=== PATIENT | female | born 1970 | race Caucasian/White ===

== ENCOUNTER 2020-01-14 08:34 | Emergency (ER) | payer OTHER ==
--- NOTE | 2020-01-14 08:49 | ERPHSYRPT ---
- History of Present Illness Time Seen by Provider: 01/14/20 08:43 Historian: patient Exam Limitations: no limitations Physician History: 49 yo wf w L flank pain x1hr. Pain is 7/10 on scale/stabbing/nothing makes better or worse. Pt states similar pain to kidney stones in past. She has had N/V wo fever/dysuria/hematuria/diarrhea. Timing/Duration: today (1hr) Activities at Onset: rest Quality: stabbing Abdominal Pain Onset Location: flank Pain Radiation: no radiation Severity of Pain-Max: severe Severity of Pain-Current: severe Modifying Factors: Improves With: nothing Associated Symptoms: nausea, vomiting, No diarrhea Previous symptoms: same symptoms as today (w kidney stones) Allergies/Adverse Reactions: No Known Drug Allergies Allergy (Verified 01/14/20 08:50) Travel Risk - International Travel Have you traveled outside of the country in past 3 weeks: No - Coronavirus Screening Are you exhibiting any of the following symptoms?: No Close contact with a COVID-19 positive Pt in past 14-21 Days: No - Review of Systems Constitutional: No Symptoms Eyes: No Symptoms Ears, Nose, & Throat: No Symptoms Respiratory: No Symptoms Cardiac: No Symptoms Genitourinary Symptoms: No Dysuria, No Frequency, No Hematuria, No Hesitancy Musculoskeletal: No Symptoms Skin: No Symptoms Neurological: No Symptoms Psychological: No Symptoms Endocrine: No Symptoms Hematologic/Lymphatic: No Symptoms Immunological/Allergic: No Symptoms All Other Systems: Reviewed and Negative - Past Medical History Neurological History: No Pertinent History ENT History: No Pertinent History Cardiac History: No Pertinent History Respiratory History: No Pertinent History Endocrine Medical History: No Pertinent History Musculoskeletal History: No Pertinent History History: Other (kidney stones) Psycho-Social History: No Pertinent History Female Reproductive Disorders: No Pertinent History - Past Surgical History Female Surgical History: Hysterectomy, Other (uterine fibroid) - Social History Smoking Status: Light tobacco smoker (<1ppd) Alcohol Use: None Drug Use: none Significant Family History: no pertinent family hx - Nursing Vital Signs Nursing Vital Signs: Initial Vital Signs Temperature 98.2 F 01/14/20 08:44 Pulse Rate 54 L 01/14/20 08:44 Respiratory Rate 22 01/14/20 08:44 Blood Pressure 109/66 01/14/20 08:44 O2 Sat by Pulse Oximetry 100 01/14/20 08:44 Pain Scale Pain Intensity 2 - Physical Exam General Appearance: no apparent distress Eye Exam: PERRL/EOMI, eyes nml inspection Ears, Nose, Throat Exam: normal ENT inspection, TMs normal, pharynx normal, moist mucous membranes Neck Exam: normal inspection, non-tender, supple, full range of motion, No meningismus, No Brudzinski, No Kernig's Respiratory Exam: normal breath sounds, lungs clear, airway intact, No respiratory distress Cardiovascular Exam: regular rate/rhythm, normal heart sounds, normal peripheral pulses, No murmur Gastrointestinal/Abdomen Exam: soft, normal bowel sounds, No tenderness, No distention, No hepatomegaly Pelvic Exam: not done Back Exam: normal range of motion, No CVA tenderness Extremity Exam: normal inspection, normal range of motion Neurologic Exam: alert, oriented x 3, cooperative, striker out II-XII nml as tested, normal mood/affect, nml cerebellar function, nml station & gait, sensation nml, No motor deficits, No sensory deficit Skin Exam: normal color, warm, dry, No rash Lymphatic Exam: No adenopathy SpO2 Interpretation: normal O2 Delivery: Room Air - Course Nursing assessment & vital signs reviewed: Yes - CT Exams Abdomen/Pelvis CT Interpretation: Discussed w/radiologist (4.3x2.5 L distal ureteral stone w mild hydro) Ordered Tests: Active Orders 24 hr Category Date Time Status ABDOMEN AND PELVIS W/0 CONTRAS [CT] Stat Exams 01/14/20 09:04 Completed UA W/RFX UR CULTURE Stat Lab 01/14/20 11:45 Completed Medication Summary Discontinued Medications Generic Name Dose Route Start Last Admin Trade Name Ashlyn PRN Reason Stop Dose Admin Fentanyl Citrate 100 mcg 01/14/20 10:16 01/14/20 10:23 Sublimaze 100 Mcg/2 Ml IV 01/14/20 10:17 100 mcg STAT ONE Administration Fentanyl Citrate Confirm 01/14/20 10:23 Sublimaze 100 Mcg/2 Ml Administered 01/14/20 10:24 Dose 100 mcg .ROUTE .STK-MED ONE Sodium Chloride 1,000 mls @ 999 mls/hr 01/14/20 08:57 01/14/20 10:48 Sodium Chloride 0.9% 1000 Ml IV 01/14/20 09:57 Infused .Q1H1M STA Infusion Sodium Chloride Confirm 01/14/20 08:59 Sodium Chloride 0.9% 1000 Ml Administered 01/14/20 09:00 Dose 1,000 mls @ ud .ROUTE .STK-MED ONE Sodium Chloride 1,000 mls @ 999 mls/hr 01/14/20 10:40 01/14/20 11:55 Sodium Chloride 0.9% 1000 Ml IV 01/14/20 11:40 Infused .Q1H1M STA Infusion Sodium Chloride Confirm 01/14/20 10:51 Sodium Chloride 0.9% 1000 Ml Administered 01/14/20 10:52 Dose 1,000 mls @ ud .ROUTE .STK-MED ONE Ketorolac Tromethamine 30 mg 01/14/20 08:56 01/14/20 09:09 Toradol 30 Mg Injection IV 01/14/20 08:57 30 mg STAT ONE Administration Ketorolac Tromethamine Confirm 01/14/20 08:59 Toradol 30 Mg Injection Administered 01/14/20 09:00 Dose 30 mg .ROUTE .STK-MED ONE Ondansetron HCl 4 mg 01/14/20 08:56 01/14/20 09:09 Zofran 4 Mg/2 Ml Vial IV 01/14/20 08:57 4 mg STAT ONE Administration Ondansetron HCl Confirm 01/14/20 08:59 Zofran 4 Mg/2 Ml Vial Administered 01/14/20 09:00 Dose 4 mg .ROUTE .STK-MED ONE Ondansetron HCl 4 mg 01/14/20 09:47 01/14/20 09:50 Zofran 4 Mg/2 Ml Vial IV 01/14/20 09:48 4 mg STAT ONE Administration Ondansetron HCl Confirm 01/14/20 09:50 Zofran 4 Mg/2 Ml Vial Administered 01/14/20 09:51 Dose 4 mg .ROUTE .STK-MED ONE Promethazine HCl 25 mg 01/14/20 11:44 01/14/20 11:47 Phenergan 25 Mg Inj IM 01/14/20 11:45 25 mg STAT ONE Administration Promethazine HCl Confirm 01/14/20 11:46 Phenergan 25 Mg Inj Administered 01/14/20 11:47 Dose 25 mg .ROUTE .STK-MED ONE Lab/Rad Data: Laboratory Results 01/14/20 Range/Units 11:45 Urine Color YELLOW (YELLOW) Urine Appearance CLOUDY (CLEAR) Urine pH 5.0 (5-6) Ur Specific [place] 1.023 (1.005-1.025) Urine Protein NEGATIVE (Negative) Urine Ketones NEGATIVE (NEGATIVE) Urine Blood MODERATE (0-5) Frank/ul Urine Nitrite NEGATIVE (NEGATIVE) Urine Bilirubin NEGATIVE (NEGATIVE) Urine Urobilinogen NEGATIVE (0-1) mg/dL Ur Leukocyte Esterase NEGATIVE (NEGATIVE) Urine WBC (Auto) 3-5 (0-5) /HPF Urine RBC (Auto) 16-25 (0-2) /HPF U Epithel Cells (Auto) FEW (FEW) /HPF Urine Bacteria (Auto) RARE (NEGATIVE) /HPF Urine Mucus (Auto) MODERATE (NEGATIVE) /HPF Urine Culture Reflexed NO (NO) Urine Glucose NEGATIVE (NEGATIVE) mg/dL - Progress Progress: improved Progress Note: 01/14/20 12:20 Pt given 30mg IV toradol w minimal relief of pain, so subsequent 100mcg IV Fentanyl given which provided adequate relief. Pt hydrated w 2L NS bolus. Nausea/vomiting treated w 4mg IV zofran x2/25mg IV phenergan w improvement. Counseled pt/family regarding: lab results, diagnosis, rad results - Departure Departure Disposition: Home Clinical Impression: Ureterolithiasis Condition: Stable Critical Care Time: No Referrals: ANGELIC BOYD NP [Primary Care Provider] - Instructions: Kidney Stones (DC) Additional Instructions: Strain all urine. Pain meds as needed. Follow up with family MD in 1-2 days Return to ER for increasing pain or temperature greater than 100.5 Forms: Work/School Release Form Prescriptions: Hydrocodone/APAP 5-325 Tab^^^ [[place] 5-325 Tablet^^^] 1 tab PO Q6HPRN PRN #6 tablet MDD 6 PRN Reason: Pain
[2020-01-14] MEDS ORDERED: Zofran 4 MG/2 ML VIAL IV ONE ×2 (08:56→09:47)
[2020-01-14] MEDS ORDERED: TORAdol 30 mg Injection IV ONE (08:56)
[2020-01-14] MEDS ORDERED: Sodium Chloride 0.9% 1000 ML 1,000 ML IV STA ×2 (08:57→10:40)
[2020-01-14] MEDS ORDERED: TORAdol 30 mg Injection ONE (08:59)
[2020-01-14] MEDS ORDERED: Zofran 4 MG/2 ML VIAL ONE ×2 (08:59→09:50)
[2020-01-14] MEDS ORDERED: Sodium Chloride 0.9% 1000 ML 1,000 ML ONE ×2 (08:59→10:51)
[2020-01-14] MEDS ORDERED: SUBLIMAZE 100 MCG/2 ML IV ONE (10:16)
[2020-01-14] MEDS ORDERED: SUBLIMAZE 100 MCG/2 ML ONE (10:23)
--- NOTE | 2020-01-14 10:24 | XRAY ---
Exam: CT of the abdomen and pelvis without IV contrast from 01/14/2020. CTDI: 16.61 mGy Comparison: None. Indication: 49-year-old female with left-sided flank pain and left lower quadrant pain. The patient gives a history of prior hysterectomy. Technique: Non-IV contrast axial images were obtained through the abdomen and pelvis. Reconstructed coronal and sagittal images were created and reviewed. Findings: The visualized lung bases reveal minimal posterior dependent atelectasis, right greater than left. A thin curvilinear strand of plate atelectasis is seen at the mid medial left lung base. No pleural fluid is seen. The transverse heart size appears within normal limits. There is a suggestion of a minimal hiatal hernia on axial image #19. Assessment of solid organs is limited without the use of IV contrast. The liver appears of unremarkable size and uniform attenuation. No intrahepatic biliary duct distention is seen. There are at least 2 prominent calcium ringed densities in the gallbladder neck, each measuring about 1.9 cm in diameter. This is consistent with cholelithiasis. No definite distention of the common bile duct is seen. The spleen is of normal size and reveals no mass. No abnormality of the pancreas or adrenal glands is seen. The kidneys appear of unremarkable size and shape. There is a 1.6 cm in diameter round low-attenuation density within the anterior aspect of the upper to mid aspect of the right kidney measuring +15.3 Hounsfield units. This might represent a renal cyst. This is incompletely evaluated. I also note multiple bilateral nonobstructing renal calculi, more numerous on the right than left. However, there is some asymmetric distention of the left ureter down to the level of an obstructing 2.5 mm distal left ureteral calculus located just proximal to the left ureterovesical junction. See axial image #116. This measures about 4.3 mm in greatest length on sagittal image #118. No other ureteral calculi are seen. The urinary bladder reveals only minimal urine within it. No definite urinary bladder calculi are seen. The abdominal aorta appears of normal diameter. No abdominal aortic aneurysm or abnormal retroperitoneal lymphadenopathy is seen. Abundant intraperitoneal fat is seen. No free intraperitoneal air is seen. A small fat-containing umbilical hernia is seen on midline sagittal image #96. No bowel containing ventral hernia is seen. The appendix is identified within the right lower quadrant and appears unremarkable. The bowel appears unobstructed. Some scattered colonic stool is noted. Small calcified phleboliths are seen within the lower pelvis. The uterus is surgically absent. No enlarged pelvic lymph nodes or free intraperitoneal fluid is seen. The skeleton reveals no acute fracture or aggressive bone lesion. Impression: 1. I note multiple small nonobstructing bilateral renal calculi. However, there is both asymmetric mild left hydroureter, as well as a 4.3 mm x 2.5 mm obstructing stone within the distal left ureter just proximal to the left ureterovesical junction causing mild obstructive uropathy on the left. 2. Cholelithiasis. 3. Normal-appearing appendix. 4. Minimal hiatal hernia, small fat-containing umbilical hernia, and evidence of prior hysterectomy. 5. Incidentally, I see no evidence of significant diverticulosis or diverticulitis within the left lower quadrant. 6. Probable small round renal cortical cyst within the anterior aspect of the upper to mid portion of the right kidney. This is incompletely evaluated on a non-IV contrast study.
[2020-01-14] MEDS ORDERED: Phenergan 25 MG INJ IM ONE (11:44)
[2020-01-14] MEDS ORDERED: Phenergan 25 MG INJ ONE (11:46)
[2020-01-14 12:04] LABS: Appearance CLOUDY (CLEAR); Bacteria RARE /HPF (NEGATIVE); Bilirubin NEGATIVE (NEGATIVE); Blood MODERATE Ery/ul (0-5); Epithelial Cells FEW /HPF (FEW); Glucose NEGATIVE (NEGATIVE); Ketones NEGATIVE (NEGATIVE); Leukocyte Esterase NEGATIVE (NEGATIVE); Mucus MODERATE /HPF (NEGATIVE); Nitrite NEGATIVE (NEGATIVE); Protein,Urine Dip NEGATIVE (Negative); Specific Gravity 1.023 (1.005-1.025); Urobilinogen NEGATIVE mg/dL (0-1)
[2020-01-14 13:11] VITALS: BP 127/84; PULSE 58; O2SAT 97
== END 2020-01-14 13:15 | disposition home or self-care (01) ==
LOC: ED 08:34
DX: N20.1 Calculus of ureter (principal)
CPT/HCPCS: 74176; 81001; 96360; 96361; 96372; 96374; 96375; 96376; 99285; J1885; J2405; J2550; J3010

== ENCOUNTER 2022-02-18 19:28 | Emergency (ER) | payer OTHER ==
[2022-02-18 19:41] VITALS: PULSE 84
[2022-02-18] MEDS ORDERED: Zofran 4 MG/2 ML VIAL IV ONE (19:44)
[2022-02-18] MEDS ORDERED: BABY ASPIRIN 81 MG CHEW PO ONE (19:44)
[2022-02-18] MEDS ORDERED: MORPHINE SULFATE 4 MG INJ IV ONE (19:44)
--- NOTE | 2022-02-18 19:45 | ERPHSYRPT ---
- History of Present Illness Time Seen by Provider: 02/18/22 19:39 Historian: patient Exam Limitations: no limitations Physician History: This is an obese 51-year-old white female smoker who presents with intermittent chest pain that is substernal central sharp and radiates into her back. She is a smoker but has not smoked in the last week. She has chest pain that worsens with a cough and with deep breath. Patient has been seen in [facility] facility and given naproxen which has not helped with the chest pain. Patient has no diagnosed cardiac diseases. She has no abdominal pain. She has no nausea vomiting or diarrhea. She has no fevers. Timing/Duration: intermittent, worse, other (Intermittently for a month) Quality: sharpness, stabbing Location: substernal, central Chest Pain Radiation: back Severity of Pain-Max: moderate Severity of Pain-Current: moderate Associated Symptoms: hurts to breathe (Hurts to take a deep breath), back pain Prior Chest Pain/Cardiac Workup: no prior chest pain Nitro Today/Relief: no nitro taken today Aspirin Treatment Today: no aspirin today Allergies/Adverse Reactions: morphine Allergy (Verified 02/18/22 20:18) Hx Tetanus, Diphtheria Vaccination/Date Given: No Hx Influenza Vaccination/Date Given: Yes Hx Pneumococcal Vaccination/Date Given: No Travel Risk - International Travel Have you traveled outside of the country in past 3 weeks: No - Coronavirus Screening Are you exhibiting any of the following symptoms?: No Close contact with a COVID-19 positive Pt in past 14-21 Days: No - Review of Systems Constitutional: No Symptoms Eyes: No Symptoms Ears, Nose, & Throat: No Symptoms Respiratory: No Symptoms Cardiac: Chest Pain Abdominal/Gastrointestinal: No Symptoms Genitourinary Symptoms: No Symptoms Musculoskeletal: No Symptoms Skin: No Symptoms Neurological: No Symptoms Psychological: No Symptoms Endocrine: No Symptoms Hematologic/Lymphatic: No Symptoms Immunological/Allergic: No Symptoms All Other Systems: Reviewed and Negative - Past Medical History Pertinent Past Medical History: No Neurological History: No Pertinent History ENT History: No Pertinent History Cardiac History: No Pertinent History Respiratory History: No Pertinent History Endocrine Medical History: No Pertinent History Musculoskeletal History: No Pertinent History History: Other (kidney stones) Psycho-Social History: No Pertinent History Female Reproductive Disorders: No Pertinent History - Past Surgical History Past Surgical History: Yes Female Surgical History: Hysterectomy, Other (uterine fibroid) Other Surgical History: c section. hysterctomy. fibroids - Social History Smoking Status: Light tobacco smoker (<1ppd) How long have you smoked: years Exposure to second hand smoke: Yes Alcohol Use: None Drug Use: none Patient Lives Alone: No Significant Family History: no pertinent family hx - Nursing Vital Signs Nursing Vital Signs: Initial Vital Signs Temperature 97.9 F 02/18/22 19:29 Pulse Rate 84 02/18/22 19:29 Respiratory Rate 18 02/18/22 19:29 Blood Pressure 136/95 02/18/22 19:29 O2 Sat by Pulse Oximetry 99 02/18/22 19:29 Pain Scale Pain Intensity 5 - Physical Exam General Appearance: mild distress, alert, anxiety, obese Eye Exam: PERRL/EOMI, eyes nml inspection Ears, Nose, Throat Exam: normal ENT inspection, moist mucous membranes Neck Exam: normal inspection, non-tender, supple, full range of motion Respiratory Exam: normal breath sounds, chest tenderness, lungs clear, airway intact, No respiratory distress Cardiovascular Exam: regular rate/rhythm, normal heart sounds, normal peripheral pulses Gastrointestinal/Abdomen Exam: soft, normal bowel sounds, No tenderness Pelvic Exam: not done Rectal Exam: not done Back Exam: normal inspection, normal range of motion, No CVA tenderness, No vertebral tenderness Extremity Exam: normal inspection, normal range of motion, pelvis stable Neurologic Exam: alert, oriented x 3, cooperative, creative producer II-XII nml as tested, normal mood/affect, nml cerebellar function, nml station & gait, sensation nml Skin Exam: normal color, warm, dry Lymphatic Exam: No adenopathy SpO2 Interpretation: normal O2 Delivery: Room Air - Course Nursing assessment & vital signs reviewed: Yes EKG Interpreted by Me: RATE, Sinus Rhythm, NORMAL AXIS, NORMAL INTERVALS, NORMAL QRS, NORMAL ST-T, Other (No acute ischemic changes.) Ordered Tests: Active Orders 24 hr Category Date Time Status Super[employer] STAT Care 02/18/22 19:45 Active EKG-ER Only STAT Care 02/18/22 19:44 Active IV Insertion STAT Care 02/18/22 19:44 Active Pulse Oximetry (ED) STAT Care 02/18/22 19:44 Active CHEST 1 VIEW (PORTABLE) Stat Exams 02/18/22 19:45 Taken CHEST WITH CONTRAST [CT] Stat Exams 02/18/22 21:03 Ordered CBC W DIFF Stat Lab 02/18/22 19:55 Completed CMP Stat Lab 02/18/22 19:55 Completed D-DIMER QUANTITATIVE Stat Lab 02/18/22 19:55 Completed TROPONIN Q4H Lab 02/18/22 19:55 Completed TROPONIN Q4H Lab 02/18/22 23:45 Ordered TROPONIN Q4H Lab 02/19/22 03:45 Ordered Medication Summary Discontinued Medications Generic Name Dose Route Start Last Admin Trade Name Ashlyn PRN Reason Stop Dose Admin Hydrocodone Bitart/Acetaminophen 1 tab 02/18/22 20:04 02/18/22 20:15 Hydrocodone/Apap 5/325 1 Tab Tablet PO 02/18/22 20:05 1 tab STAT ONE Administration Hydrocodone Bitart/Acetaminophen Confirm 02/18/22 20:14 Hydrocodone/Apap 5/325 1 Tab Tablet Administered 02/18/22 20:15 Dose 1 tab .ROUTE .STK-MED ONE Aspirin 324 mg 02/18/22 19:44 02/18/22 19:50 Aspirin 81 Mg Tab.Chew PO 02/18/22 19:45 324 mg STAT ONE Administration Sodium Chloride 500 mls @ 500 mls/hr 02/18/22 21:04 02/18/22 21:14 Sodium Chloride 0.9% 500 Ml IV 02/18/22 22:03 500 mls/hr .Q1H ONE Administration Sodium Chloride Confirm 02/18/22 21:13 Sodium Chloride 0.9% 500 Ml Administered 02/18/22 21:14 Dose 500 mls @ ud IV .STK-MED ONE Morphine Sulfate 4 mg 02/18/22 19:44 02/18/22 19:51 Morphine Sulfate 4 Mg/Ml Injection IV 02/18/22 19:45 Not Given STAT ONE Morphine Sulfate Confirm 02/18/22 19:50 Morphine Sulfate 4 Mg/Ml Injection Administered 02/18/22 19:51 Dose 4 mg .ROUTE .STK-MED ONE Ondansetron HCl 4 mg 02/18/22 19:44 02/18/22 19:51 Ondansetron Hcl 4 Mg/2 Ml Vial IV 02/18/22 19:45 4 mg STAT ONE Administration Ondansetron HCl Confirm 02/18/22 19:49 Ondansetron Hcl 4 Mg/2 Ml Vial Administered 02/18/22 19:50 Dose 4 mg .ROUTE .STK-MED ONE Lab/Rad Data: Laboratory Result Diagrams 02/18/22 19:55 02/18/22 19:55 Laboratory Results 02/18/22 02/18/22 02/18/22 Range/Units 19:55 19:55 19:55 WBC (4.0-10.5) x10^3/uL RBC (4.1-5.4) x10^6/uL Hgb (12.0-16.0) g/dL Hct (35-47) % MCV (78-100) fL MCH (26-32) pg MCHC (32-36) g/dL RDW (11.5-14.0) % Plt Count (150-450) x10^3/uL MPV (7.5-11.0) fL Gran % (36.0-66.0) % Immature Gran % (Auto) (0.00-0.4) % Nucleat RBC Rel Count (0.00-0.1) % Eos # (Auto) (0-0.5) x10^3/uL Immature Gran # (Auto) (0.00-0.03) x10^3u/L Absolute Lymphs (auto) (1.0-4.6) x10^3/uL Absolute Monos (auto) (0.0-1.3) x10^3/uL Absolute Nucleated RBC (0.00-0.01) x10^3u/L Lymphocytes % (24.0-44.0) % Monocytes % (0.0-12.0) % Eosinophils % (0.00-5.0) % Basophils % (0.0-0.4) % Absolute Granulocytes (1.4-6.9) x10^3/uL Basophils # (0-0.4) x10^3/uL D-Dimer 0.82 H* (0.0-0.50) mg/L Sodium 137 (137-145) mmol/L Potassium 3.5 (3.5-5.1) mmol/L Chloride 107 (98-107) mmol/L Carbon Dioxide 24 (22-30) mmol/L Anion Gap 9.9 (5-15) MEQ/L BUN 18 H (7-17) mg/dL Creatinine 0.70 (0.52-1.04) mg/dL Estimated GFR > 60.0 ML/MIN Glucose 120 H (74-106) mg/dL Calcium 8.6 (8.4-10.2) mg/dL Total Bilirubin 0.30 (0.2-1.3) mg/dL AST 43 H (14-36) U/L ALT 46 H (0-35) U/L Alkaline Phosphatase 91 (38-126) U/L Troponin I < 0.012 (0.000-0.034) ng/mL Serum Total Protein 7.0 (6.3-8.2) g/dL Albumin 3.9 (3.5-5.0) g/dL 02/18/22 Range/Units 19:55 WBC 7.0 (4.0-10.5) x10^3/uL RBC 4.61 (4.1-5.4) x10^6/uL Hgb 14.6 (12.0-16.0) g/dL Hct 44.6 (35-47) % MCV 96.7 (78-100) fL MCH 31.7 (26-32) pg MCHC 32.7 (32-36) g/dL RDW 12.1 (11.5-14.0) % Plt Count 286 (150-450) x10^3/uL MPV 9.3 (7.5-11.0) fL Gran % 63.3 (36.0-66.0) % Immature Gran % (Auto) 0.6 H (0.00-0.4) % Nucleat RBC Rel Count 0.0 (0.00-0.1) % Eos # (Auto) 0.14 (0-0.5) x10^3/uL Immature Gran # (Auto) 0.04 H (0.00-0.03) x10^3u/L Absolute Lymphs (auto) 1.65 (1.0-4.6) x10^3/uL Absolute Monos (auto) 0.71 (0.0-1.3) x10^3/uL Absolute Nucleated RBC 0.00 (0.00-0.01) x10^3u/L Lymphocytes % 23.6 L (24.0-44.0) % Monocytes % 10.2 (0.0-12.0) % Eosinophils % 2.0 (0.00-5.0) % Basophils % 0.3 (0.0-0.4) % Absolute Granulocytes 4.43 (1.4-6.9) x10^3/uL Basophils # 0.02 (0-0.4) x10^3/uL D-Dimer (0.0-0.50) mg/L Sodium (137-145) mmol/L Potassium (3.5-5.1) mmol/L Chloride (98-107) mmol/L Carbon Dioxide (22-30) mmol/L Anion Gap (5-15) MEQ/L BUN (7-17) mg/dL Creatinine (0.52-1.04) mg/dL Estimated GFR ML/MIN Glucose (74-106) mg/dL Calcium (8.4-10.2) mg/dL Total Bilirubin (0.2-1.3) mg/dL AST (14-36) U/L ALT (0-35) U/L Alkaline Phosphatase (38-126) U/L Troponin I (0.000-0.034) ng/mL Serum Total Protein (6.3-8.2) g/dL Albumin (3.5-5.0) g/dL - Progress Progress: improved, re-examined Air Movement: good Progress Note: 02/18/22 20:06 Chest x-ray shows no acute cardiopulmonary process. 02/18/22 22:08 CTA of the chest shows no acute cardiopulmonary process. There is no evidence of pulmonary embolus. Blood Culture(s) Obtained: No Antibiotics given: No Counseled pt/family regarding: lab results, diagnosis, need for follow-up, rad results - Departure Departure Disposition: Home Clinical Impression: Pleurisy Condition: Stable Critical Care Time: No [facility] - Follow up/PCP as directed Additional Instructions: Take your medication as prescribed. Follow-up with your primary care provider for further evaluation management. Prescriptions: Prednisone 10 mg [Deltasone 10 mg] 10 mg PO TID #12 tablet
[2022-02-18] MEDS ORDERED: Zofran 4 MG/2 ML VIAL ONE (19:49)
[2022-02-18] MEDS ORDERED: MORPHINE SULFATE 4 MG INJ ONE (19:50)
[2022-02-18] MEDS ORDERED: NORCO 5/325 MG PO ONE (20:04)
[2022-02-18 20:07] LABS: Absolute Neutrophil Ct (ANC) 4.43 x10^3/uL (1.4-6.9); Basophil (Absolute #) 0.02 x10^3/uL (0-0.4); Eosinophil (Absolute #) 0.14 x10^3/uL (0-0.5); Hematocrit 44.6 % (35-47); Hemoglobin 14.6 g/dL (12.0-16.0); Lymphocyte (Absolute #) 1.65 x10^3/uL (1.0-4.6); Lymphocytes % 23.6 % (24.0-44.0); Mean Cell Volume 96.7 fL (78-100); Mean Corpuscular Hemoglobin 31.7 pg (26-32); Mean Corpuscular Hgb Concent. 32.7 g/dL (32-36); Mean Platelet Volume 9.3 fL (7.5-11.0); Monocyte (Absolute #) 0.71 x10^3/uL (0.0-1.3); Monocytes % 10.2 % (0.0-12.0); Neutrophil % 63.3 % (36.0-66.0); Platelet Count 286 x10^3/uL (150-450); Red Blood Count 4.61 x10^6/uL (4.1-5.4); Red Cell Distribution Width 12.1 % (11.5-14.0)
[2022-02-18] MEDS ORDERED: NORCO 5/325 MG ONE (20:14)
[2022-02-18 20:21] LABS: ALBUMIN 3.9 g/dL (3.5-5.0); ALKALINE PHOSPHATASE 91 U/L (38-126); ANION GAP 9.9 MEQ/L (5-15); BLOOD UREA NITROGEN 18 mg/dL (7-17); CHLORIDE 107 mmol/L (98-107); Calcium 8.6 mg/dL (8.4-10.2); Carbon Dioxide 24 mmol/L (22-30); EST GLOMERULAR FILTRATION RATE > 60.0 ML/MIN; Glucose 120 mg/dL (74-106); Potassium 3.5 mmol/L (3.5-5.1); SGOT/AST 43 U/L (14-36); SGPT/ALT 46 U/L (0-35); SODIUM 137 mmol/L (137-145)
[2022-02-18] MEDS ORDERED: Sodium Chloride 0.9% 500 ML 500 ML IV ONE ×2 (21:04→21:13)
[2022-02-18] MEDS ORDERED: solu-MEDROL 125 MG, Sterile H2O 10 ml 2 ML IV ONE ×2 (22:08)
[2022-02-18] MEDS ORDERED: solu-MEDROL ONE (22:12)
[2022-02-18] MEDS ORDERED: Sterile H2O 10 ml IJ ONE (22:12)
[2022-02-18 22:16] VITALS: BP 100/77; O2SAT 98
--- NOTE | 2022-02-19 08:43 | XRAY ---
Indication: Chest pain. Elevated d-dimer. Multiple contiguous axial images obtained through the chest using 100 cc Isovue 370 contrast and PE protocol. Comparison: None Good opacification of the pulmonary arteries to include the lobar and segmental branches. No pulmonary embolus. Heart not enlarged. Aorta is normal course and caliber. Tiny subcarinal calcified nodes. No pathologic mediastinal/hilar lymphadenopathy. Small hiatal hernia. Lungs demonstrates mild bilateral dependent atelectasis. No suspicious pulmonary mass, infiltrate, effusion, or pneumothorax. Bony thorax intact. Limited upper abdomen demonstrates fatty liver and a few gallstones, largest 2 cm. Impression: 1. Negative pulmonary embolus. No acute cardiopulmonary abnormalities. 2. Incidental small hiatal hernia, fatty liver, and cholelithiasis.
--- NOTE | 2022-02-19 08:43 | XRAY ---
Indication: Chest pain. Comparison: June 14, 2019 Portable apical lordotic chest again demonstrates normal heart, lungs, and bony thorax.
== END 2022-02-18 22:39 | disposition home or self-care (01) ==
LOC: ED 19:28
DX: R09.1 Pleurisy (principal); Z72.0 Tobacco use; Z79.52 Long term (current) use of systemic steroids
CPT/HCPCS: 36000; 36415; 71045; 71260; 80053; 84484; 85025; 85379; 93005; 93041; 94760; 96360; 96374; 96375; 99284; J2270; J2405; J2930; A9270-GY

== ENCOUNTER 2023-02-07 06:04 | Day surgery (SDC) | payer OTHER ==
[2023-02-07] MEDS ORDERED: Lactated Ringers 1,000 ML IV SCH (06:30)
[2023-02-07] MEDS ORDERED: Lactated Ringers 1,000 ML IV ONE (06:32)
[2023-02-07] MEDS ORDERED: Xylocaine-Mpf 2% 5 Ml Vial ONE (07:01)
[2023-02-07] MEDS ORDERED: DIPRIVAN 200 MG/20 ML IV ONE ×2 (07:01→07:14)
[2023-02-07] MEDS ORDERED: Versed 2 MG/2 ML Injection ONE (07:01)
[2023-02-07 07:59] VITALS: RESP 16
[2023-02-07 08:30] VITALS: BP 123/62; PULSE 60; TEMP 97.9; O2SAT 100
--- NOTE | 2023-02-07 11:52 | OP ---
SURGERY DATE: 02/07/2023 SURGERY TIME: 700 PREOPERATIVE DIAGNOSIS: 1. SCREENING EXAM. POSTOPERATIVE DIAGNOSIS: 1. NORMAL COLON. PROCEDURE: 1. Colonoscopy. SURGEON: Dr. Strickland. ANESTHESIA: MAC. Medications given by the Anesthesia Department. BRIEF HISTORY: The patient is a 52 y/o WF presenting now for colonoscopic evaluation. The patient was appraised of the risks of the procedure including the risk of perforation, phlebitis, untoward reaction to medication, bleeding, and missed lesions. The patient verbalized her understanding and desired to have the procedure performed. DESCRIPTION OF PROCEDURE: The patient was given the medications by the Anesthesia Department. She had continuous pulse oximetry, ECG monitoring, and intermittent BP monitoring during the examination. She was placed in the left lateral decubitus position. A digital rectal examination was performed and revealed normal anal sphincter tone and no masses. The flexible Olympus pediatric colonoscope was used to intubate the rectum. A view of the colon was developed sequentially to the cecum. Upon insertion and withdrawal, including a retroflex view in the rectum, no mucosal lesions were encountered. The scope was then removed from the patient who tolerated the procedure well and was sent back to OP recovery in good condition. The prep was noted to be fair with large amounts of liquid stool present in the colon which we suctioned clear as best we could.
== END 2023-02-07 08:40 | disposition home or self-care (01) ==
LOC: SDC 06:04
PROVIDERS: ATTEND Family Medicine
DX: Z12.11 Encounter for screening for malignant neoplasm of colon (principal)
CPT/HCPCS: J2250; J2704